=== PATIENT | female | born 1945 | race Caucasian/White ===

== ENCOUNTER 2020-12-02 02:31 | Inpatient (IN) | payer MEDICARE, OTHER ==
[~2020-12-02] VITALS: Ht 162.6 cm; Wt 80.3 kg
[2020-12-02] MEDS ORDERED: NEXIUM20 MG PO (02:57)
[2020-12-02] MEDS ORDERED: POTASSIUM CHLO10 ME1 PO (02:58)
[2020-12-02] MEDS ORDERED: ATENOLOL50 MG PO (03:45)
[2020-12-02 03:48] LABS: HEMOGLOBIN 14.5 gm/dl (12.3-15.3); RED BLOOD COUNT 4.48 M/UL (4.00-5.10); WHITE BLOOD COUNT 11.1 K/UL (4.5-11.0)
[2020-12-02] MEDS ORDERED: OMEPRAZOLE40 MG PO (03:56)
[2020-12-02 04:26] LABS: BUN/CREATININE RATIO 22 (0-10)
[2020-12-02] MEDS ORDERED: LINZESS145 MCG PO (09:06)
[2020-12-02] MEDS ORDERED: TRANXENE 7.5 M7.5 MG PO (09:06)
--- NOTE | 2020-12-02 14:53 | NUR ---
1430- PATIENT LEFT FLOOR FOR OR.
[2020-12-02 18:05] LABS: HEMOGLOBIN 12.8 gm/dl (12.3-15.3); WHITE BLOOD COUNT 8.8 K/UL (4.5-11.0)
[2020-12-02 18:06] LABS: RED BLOOD COUNT 3.98 M/UL (4.00-5.10)
[2020-12-02 18:21] LABS: BUN/CREATININE RATIO 17 (0-10)
--- NOTE | 2020-12-02 18:43 | NUR ---
PAITENT BACK FROM OR AT THIS TIME. SURGICAL SITE CLEAN, DRY AND INTACT. AQUACEL NOTED TO SITE. ABLE TO WIGGLE TOES. PULSES NOTED. VITAL SIGNS STABLE. NO DISTRESS NOTED.
[2020-12-03 05:48] LABS: BUN/CREATININE RATIO 17 (0-10)
[2020-12-03 05:51] LABS: HEMOGLOBIN 12.3 gm/dl (12.3-15.3); RED BLOOD COUNT 3.8 M/UL (4.00-5.10); WHITE BLOOD COUNT 8.7 K/UL (4.5-11.0)
[2020-12-04 05:13] LABS: HEMOGLOBIN 11.4 gm/dl (12.3-15.3); RED BLOOD COUNT 3.55 M/UL (4.00-5.10); WHITE BLOOD COUNT 9.2 K/UL (4.5-11.0)
[2020-12-04] MEDS ORDERED: ENOXAPARIN40 MG/0.4 SC (11:39)
[2020-12-05 03:48] LABS: HEMOGLOBIN 10.6 gm/dl (12.3-15.3); RED BLOOD COUNT 3.29 M/UL (4.00-5.10); WHITE BLOOD COUNT 8.4 K/UL (4.5-11.0)
[2020-12-05 04:07] LABS: BUN/CREATININE RATIO 17 (0-10)
--- NOTE | 2020-12-05 11:47 | NUR ---
WAS INFORMED BY DR. MENDOZA PATIENT REFUSED TO GO HOME, HAVING SECOND THOUGHTS OF GOING TO REHAB. WILL CALL SON AND DISCUSS WHAT WILL BE THE DECISION SHE HAS TO MAKE. WILL INFORM VISUAL DESIGN LEAD
--- NOTE | 2020-12-05 14:00 | NUR ---
SPOKEN TO MAHENDRA HURLEY AND WAS INFORMED THAT SHE IS SENDING ALL REQUIREMENTS TO REHAB.
[2020-12-06 04:33] LABS: RED BLOOD COUNT 3.17 M/UL (4.00-5.10); WHITE BLOOD COUNT 7.6 K/UL (4.5-11.0)
[2020-12-06] MEDS ORDERED: HYDROCODON-ACE1 EAC4 PO (13:55)
== END 2020-12-06 18:03 | DRG 522 ==
LOC: M/S 02:31
PROVIDERS: Internal Medicine; Orthopaedic Surgery; ADMIT Internal Medicine
PROC: 0SRR0JZ Replacement of Right Hip Joint, Femoral Surface with Synthetic Substitute, Open Approach (ICD-10-PCS; principal; 2020-12-02 15:00)
DX: S72.001A Fracture of unspecified part of neck of right femur, initial encounter for closed fracture (principal); W01.0XXA Fall on same level from slipping, tripping and stumbling without subsequent striking against object, initial encounter; Y92.009 Unspecified place in unspecified non-institutional (private) residence as the place of occurrence of the external cause; I10 Essential (primary) hypertension; K21.9 Gastro-esophageal reflux disease without esophagitis; F41.9 Anxiety disorder, unspecified; E87.6 Hypokalemia; Z79.899 Other long term (current) drug therapy; Z20.822 Contact with and (suspected) exposure to COVID-19
CPT/HCPCS: 36415; 72170; 73502; 73552; 80048; 80053; 82550; 82553; 82607; 82746; 83036; 83735; 84100; 84132; 84484; 85025; 85027; 85610; 86140; 86850; 86900; 86901; 93005; 97110; 97110-GP-CQ; 97116; 97116-GP-CQ; 97161; 97166; 97530; 97530-GP-CQ; 97535; C1776; C9113; J0360; J0690; J1100; J1650; J2001; J2270; J2405; J2704; J2710; J3010; J3370; J7120; U0002